=== PATIENT | female | born 2000 | race Caucasian/White ===

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

== ENCOUNTER 2020-11-06 16:48 | Emergency (ER) | payer SELFPAY | END 2020-11-06 21:45 | disposition left against medical advice (07) | LOC: ER1 16:48 | DX: R42 Dizziness and giddiness (principal); R51.9 Headache, unspecified; Z53.21 Procedure and treatment not carried out due to patient leaving prior to being seen by health care provider ==

== ENCOUNTER 2020-12-09 00:25 | Emergency (ER) | payer OTHER | END 2020-12-09 02:57 | disposition home or self-care (01) | LOC: ER1 00:25 | DX: U07.1 COVID-19 (principal); F17.210 Nicotine dependence, cigarettes, uncomplicated | CPT/HCPCS: 0240U; 71045; 99284 ==

== ENCOUNTER 2020-12-20 19:06 | Emergency (ER) | payer OTHER | END 2020-12-20 19:50 | disposition home or self-care (01) | LOC: ER1 19:06 | DX: U07.1 COVID-19 (principal) | CPT/HCPCS: 99283 ==